=== PATIENT | male | born 1940 | race Caucasian/White ===

== ENCOUNTER 2016-08-13 07:08 | Day surgery (SDC) | payer OTHER ==
[2016-08-13] MEDS ORDERED: LIDOCAINE HCL 1% MPF SOL ONE (08:02)
[2016-08-13] MEDS ORDERED: DEXAMETHASONE 20 MG/5 ML (4 MG/ML SOL) ONE (08:02)
[2016-08-13] MEDS ORDERED: ONDANSETRON HCL 4 MG/2 ML SOL ONE (08:02)
[2016-08-13] MEDS ORDERED: PROPOFOL 10 MG/ML EMU IV ONE (08:02)
[2016-08-13] MEDS ORDERED: FENTANYL 100MCG/2ML SOL ONE ×2 (08:03→09:05)
[2016-08-13] MEDS ORDERED: CEFAZOLIN SODIUM 1 GM PDS ONE (08:13)
[2016-08-13] MEDS ORDERED: GLYCOPYRROLATE 0.2 MG/ML SOL ONE ×2 (08:46→08:49)
[2016-08-13] MEDS ORDERED: NEOSTIGMINE METHYLSULFATE 1 MG/ML SOL ONE (08:49)
[2016-08-13] MEDS: BUPIVACAINE/EPI 0.25% 50 ML SOL ONE ×2 (09:40→09:51)
[2016-08-13 10:10] VITALS: TEMP 96.6
[2016-08-13 10:27] VITALS: O2SAT 92
[2016-08-13 10:53] VITALS: BP 110/67; PULSE 54; RESP 18
[2016-08-13] MEDS ORDERED: KETOROLAC TROMETHAMINE 30 MG/ML SOL ONE (10:53)
[2016-08-13] MEDS ORDERED: KETOROLAC TROMETHAMINE 30 MG/ML SOL IV ONE (10:58)
== END 2016-08-13 11:40 | disposition home or self-care (01) | DRG 395 ==
LOC: SURG 07:08
PROVIDERS: ATTEND Surgery
DX: K40.30 Unilateral inguinal hernia, with obstruction, without gangrene, not specified as recurrent (principal)
CPT/HCPCS: J0330; J0690; J1100; J1885; J2405; J2710; J3010; J7643; A6402; C1781; J2001; J2704